=== PATIENT | female | born 1950 | race Two or more races ===

== ENCOUNTER → 2017-10-30 | Outpatient (CLI) | payer OTHER | END | disposition home or self-care (01) | LOC: HKI 14:39 | DX: M17.0 Bilateral primary osteoarthritis of knee (principal) | CPT/HCPCS: 73564; 73564-50 ==

== ENCOUNTER → 2017-12-23 | Outpatient (CLI) | payer OTHER | END | disposition home or self-care (01) | LOC: HKI 15:01 | DX: M17.11 Unilateral primary osteoarthritis, right knee (principal) | CPT/HCPCS: Z7500 ==

== ENCOUNTER → 2018-03-03 | Outpatient (CLI) | payer OTHER | END | disposition home or self-care (01) | LOC: HKI 13:47 | DX: M17.11 Unilateral primary osteoarthritis, right knee (principal) | CPT/HCPCS: Z7500 ==

== ENCOUNTER → 2018-04-20 | Outpatient (CLI) | payer OTHER | END | disposition home or self-care (01) | LOC: HKI 10:38 | DX: M25.561 Pain in right knee (principal); M17.11 Unilateral primary osteoarthritis, right knee | CPT/HCPCS: Z7500 ==

== ENCOUNTER → 2018-05-18 | Outpatient (CLI) | payer OTHER | END | disposition home or self-care (01) | LOC: HKI 10:25 | DX: M25.561 Pain in right knee (principal) | CPT/HCPCS: Z7500 ==

== ENCOUNTER 2018-05-27 13:36 | Inpatient (IN) | payer OTHER ==
[2018-05-27] MEDS: TRANEXAMIC ACID 1,000 MG in NS 100 ML INTRA-OP X1 IVPB (06:00)
[2018-05-27] MEDS: TRANEXAMIC ACID 1,000 MG in NS 100 ML PRE-OP X1 IVPB (06:00)
[2018-05-27] MEDS: DEXAMETHASONE 4 MG/ML 1 ML INJ IV ×2 (06:00→16:00)
[2018-05-27] MEDS: LACTATED RINGER'S 1,000 ML IV* (06:00)
[2018-05-27] MEDS: LANSOPRAZOLE 30 MG CAP PO (06:00)
[2018-05-27] MEDS: CEFAZOLIN 2 GM/50 ML (PMX) 50 ML IVPB (06:00)
[~2018-05-27 13:36] MED LIST: PROPOFOL 200 MG INJ
[2018-05-27] MEDS: SOD CHLORIDE 0.9% 1,000 ML IV ×2 (15:27→22:12)
[2018-05-27] MEDS ORDERED: BISACODYL 10 MG SUPP PR (15:30)
[2018-05-27] MEDS ORDERED: BETHANECHOL 25 MG TAB PO (15:30)
[2018-05-27] MEDS: ONDANSETRON 4 MG INJ IV ×2 (15:30→21:58)
[2018-05-27] MEDS ORDERED: oxyCODONE 5 MG TAB PO (15:30)
[2018-05-27] MEDS ORDERED: NA PHOSPHATE/BIPHOS 133 ML ENEMA PR (15:30)
[2018-05-27] MEDS: CEFAZOLIN 1 GM/50 ML (PMX) 50 ML IVPB ×2 (15:30→23:26)
[2018-05-27] MEDS ORDERED: NALOXONE (0.4 MG/ML) INJ IV (15:30)
[2018-05-27] MEDS ORDERED: LANSOPRAZOLE 30 MG CAP (15:52)
[2018-05-27] MEDS: POLYMYXIN B 500000 UNIT INJ (16:45)
[2018-05-27] MEDS: BACITRACIN 50000 UNITS INJ (16:45)
[2018-05-27] MEDS: KNEE PAIN COCKTAIL (CEFUROXIME) INJ (16:45)
[2018-05-27] MEDS ORDERED: PROVENTIL HFA 6.7GM INHALER (18:15)
[2018-05-27] MEDS ORDERED: morphine SULFATE/PF (10 MG/10 ML) INJ (18:15)
[2018-05-27] MEDS ORDERED: FENTAnyl 50 MCG/ML VIAL (18:15)
[2018-05-27] MEDS ORDERED: MIDAZOLAM 1 MG/ML 2 ML INJ (18:15)
[2018-05-27] MEDS ORDERED: ETOMIDATE 20 MG INJ (18:20)
[2018-05-27] MEDS ORDERED: ROCURONIUM 50 MG INJ (18:20)
[2018-05-27] MEDS ORDERED: LIDOCAINE 2% (SDV) 5 ML INJ (18:20)
[2018-05-27] MEDS ORDERED: CEFAZOLIN 1 GM INJ (18:21)
[2018-05-27] MEDS: DOCUSATE SODIUM 100 MG CAP PO (18:47)
[2018-05-27] MEDS: ASPIRIN 81 MG TAB PO ×2 (18:48→21:00)
[2018-05-27] MEDS ORDERED: MEPERIDINE 25 MG INJ IV (19:00)
[2018-05-27] MEDS ORDERED: ONDANSETRON 4 MG INJ IV (19:00)
[2018-05-27] MEDS ORDERED: METOCLOPRAMIDE 10 MG INJ IV (19:00)
[2018-05-27] MEDS ORDERED: FENTAnyl 50 MCG/ML VIAL IV (19:00)
[2018-05-27] MEDS ORDERED: ALBUTEROL 0.083% (NEB) 2.5 MG/3 ML AMP HHN (19:00)
[2018-05-27] MEDS ORDERED: HYDROmorphONE 1 MG/5 ML IV SYRINGE IV ×2 (19:00)
[2018-05-27] MEDS ORDERED: DIPHENHYDRAMINE 50 MG INJ IV (19:00)
[2018-05-27] MEDS ORDERED: GLUCAGON 1 MG INJ IM (20:00)
[2018-05-27] MEDS ORDERED: GLUCOSE GEL 15 GRAM TUBE PO ×2 (20:00)
[2018-05-27] MEDS ORDERED: DEXTROSE 50% 50 ML SYRINGE IV (20:00)
[2018-05-27] MEDS ORDERED: GLUCOSE GEL 15 GRAM TUBE BUCCAL (20:00)
[2018-05-27] MEDS: GABAPENTIN 100 MG CAP PO (21:58)
[2018-05-27] MEDS: ACCU-CHEK XX (22:06)
[2018-05-27] MEDS: DEXTROSE 50% 50 ML SYRINGE IV (22:49)
[2018-05-28] MEDS: ONDANSETRON 4 MG INJ IV ×2 (03:21→09:10)
[2018-05-28 05:12] LABS: ADD MAN DIFF? NO
[2018-05-28 05:14] LABS: BASOPHILS % 0.5 % (0.0-2.0); EOSINOPHILS # 0.1 10^3/ul (0.0-0.5); EOSINOPHILS % 0.6 % (0.0-7.0); HEMATOCRIT 36.8 % (37.0-47.0); HEMOGLOBIN 12.2 g/dl (12.0-16.0); LYMPHOCYTES # 0.6 10^3/ul (0.8-2.9); LYMPHOCYTES % 7.4 % (15.0-51.0); MEAN CORPUSCULAR HEMOGLOBIN 31.2 pg (29.0-33.0); MEAN CORPUSCULAR HGB CONC 33.2 g/dl (32.0-37.0); MEAN CORPUSCULAR VOLUME 94.1 fl (82.0-101.0); MEAN PLATELET VOLUME 12.5 fl (7.4-10.4); MONOCYTE # 0.5 10^3/ul (0.3-0.9); MONOCYTES % 5.5 % (0.0-11.0); NEUTROPHIL # 7.4 10^3/ul (1.6-7.5); NEUTROPHILS % 85.7 % (39.0-77.0); PLATELET COUNT 226 10^3/UL (140-415); RED BLOOD COUNT 3.91 10^6/ul (4.20-5.40); RED CELL DISTRIBUTION WIDTH 13.9 % (11.5-14.5)
[2018-05-28 05:14] LABS: WHITE BLOOD COUNT 8.7 10^3/ul (4.8-10.8)
[2018-05-28 05:40] LABS: ANION GAP 6 (5-13); BLOOD UREA NITROGEN 14 mg/dl (7-20); CALCIUM 8.4 mg/dl (8.4-10.2); CARBON DIOXIDE 31 mmol/L (21-31); CHLORIDE 103 mmol/L (97-110); CREATININE 0.56 mg/dl (0.44-1.00); Estimated GFR > 60 mL/min (>60); GLUCOSE 118 mg/dl (70-220); POTASSIUM 4.8 mmol/L (3.5-5.1); SODIUM 140 mmol/L (135-144)
[2018-05-28] MEDS: LEVOTHYROXINE 100 MCG TAB PO (06:03)
[2018-05-28] MEDS: oxyCODONE 5 MG TAB PO ×4 (06:03→21:27)
[2018-05-28] MEDS: CEFAZOLIN 1 GM/50 ML (PMX) 50 ML IVPB (06:41)
[2018-05-28] MEDS: ACETAMINOPHEN 325 MG TAB PO (07:15)
[2018-05-28] MEDS: ACCU-CHEK XX ×4 (08:29→20:23)
[2018-05-28] MEDS: DOCUSATE SODIUM 100 MG CAP PO ×2 (09:08→20:30)
[2018-05-28] MEDS: metFORMIN 500 MG TAB PO ×2 (09:08→18:19)
[2018-05-28] MEDS: ASPIRIN 81 MG TAB PO ×2 (09:08→20:30)
[2018-05-28] MEDS: FERROUS FUMARATE (SR) TAB PO ×2 (09:08→20:30)
[2018-05-28] MEDS: BENAZEPRIL 20 MG TAB PO (09:09)
[2018-05-28] MEDS: CELECOXIB 200 MG CAP PO (09:09)
[2018-05-28] MEDS: GABAPENTIN 100 MG CAP PO ×2 (09:09→20:30)
[2018-05-28] MEDS: AMLODIPINE 10 MG TAB PO (09:09)
[2018-05-28] MEDS: DIPHENHYDRAMINE 50 MG INJ IV (10:10)
[2018-05-28] MEDS: SOD CHLORIDE 0.9% 1,000 ML IV (13:06)
[2018-05-28] MEDS: GLIMEPIRIDE 2 MG TAB PO ×2 (13:06→17:55)
[2018-05-28] MEDS: BISOPROLOL 5 MG TAB PO (13:07)
[2018-05-28] MEDS: ENOXAPARIN 30 MG/0.3 ML SYG SC (17:31)
[2018-05-29] MEDS: oxyCODONE 5 MG TAB PO ×2 (04:34→09:15)
[2018-05-29 05:41] LABS: ADD MAN DIFF? NO
[2018-05-29 05:45] LABS: BASOPHILS % 0.4 % (0.0-2.0); EOSINOPHILS # 0.1 10^3/ul (0.0-0.5); EOSINOPHILS % 0.5 % (0.0-7.0); HEMATOCRIT 37.3 % (37.0-47.0); HEMOGLOBIN 12.3 g/dl (12.0-16.0); LYMPHOCYTES # 1.1 10^3/ul (0.8-2.9); LYMPHOCYTES % 9.7 % (15.0-51.0); MEAN CORPUSCULAR HEMOGLOBIN 30.9 pg (29.0-33.0); MEAN CORPUSCULAR VOLUME 93.7 fl (82.0-101.0); MEAN PLATELET VOLUME 12.7 fl (7.4-10.4); MONOCYTES % 8.8 % (0.0-11.0); NEUTROPHIL # 8.8 10^3/ul (1.6-7.5); NEUTROPHILS % 80.2 % (39.0-77.0); PLATELET COUNT 240 10^3/UL (140-415); RED BLOOD COUNT 3.98 10^6/ul (4.20-5.40); RED CELL DISTRIBUTION WIDTH 13.3 % (11.5-14.5)
[2018-05-29] MEDS: LEVOTHYROXINE 100 MCG TAB PO (06:02)
[2018-05-29] MEDS: PANTOPRAZOLE (EC) 40 MG TAB PO (06:02)
[2018-05-29 06:17] LABS: ANION GAP 6 (5-13); BLOOD UREA NITROGEN 14 mg/dl (7-20); CALCIUM 8.4 mg/dl (8.4-10.2); CARBON DIOXIDE 33 mmol/L (21-31); CHLORIDE 100 mmol/L (97-110); CREATININE 0.65 mg/dl (0.44-1.00); Estimated GFR > 60 mL/min (>60); GLUCOSE 110 mg/dl (70-220); POTASSIUM 4.8 mmol/L (3.5-5.1); SODIUM 139 mmol/L (135-144)
[2018-05-29] MEDS: ACETAMINOPHEN 325 MG TAB PO ×2 (06:22→13:12)
[2018-05-29] MEDS: ACCU-CHEK XX ×4 (08:58→21:00)
[2018-05-29] MEDS: GABAPENTIN 100 MG CAP PO (09:15)
[2018-05-29] MEDS: DOCUSATE SODIUM 100 MG CAP PO ×2 (09:15→21:44)
[2018-05-29] MEDS: FERROUS FUMARATE (SR) TAB PO ×2 (09:16→21:00)
[2018-05-29] MEDS: GLIMEPIRIDE 2 MG TAB PO ×2 (09:16→17:55)
[2018-05-29] MEDS: ASPIRIN 81 MG TAB PO ×2 (09:16→21:45)
[2018-05-29] MEDS: BISOPROLOL 5 MG TAB PO (09:16)
[2018-05-29] MEDS: AMLODIPINE 10 MG TAB PO (09:16)
[2018-05-29] MEDS: metFORMIN 500 MG TAB PO ×2 (09:17→17:55)
[2018-05-29] MEDS: BENAZEPRIL 20 MG TAB PO (09:17)
[2018-05-29] MEDS: ENOXAPARIN 30 MG/0.3 ML SYG SC (09:26)
[2018-05-29] MEDS: MAGNESIUM HYDROXIDE 30ML CUP PO (21:48)
[2018-05-30] MEDS: oxyCODONE 5 MG TAB PO ×2 (03:09→15:53)
[2018-05-30 05:26] LABS: ADD MAN DIFF? NO
[2018-05-30 05:33] LABS: BASOPHILS % 0.2 % (0.0-2.0); EOSINOPHILS # 0.2 10^3/ul (0.0-0.5); EOSINOPHILS % 1.9 % (0.0-7.0); HEMOGLOBIN 10.3 g/dl (12.0-16.0); LYMPHOCYTES % 11.3 % (15.0-51.0); MEAN CORPUSCULAR HEMOGLOBIN 30.9 pg (29.0-33.0); MEAN CORPUSCULAR HGB CONC 33.2 g/dl (32.0-37.0); MEAN CORPUSCULAR VOLUME 93.1 fl (82.0-101.0); MEAN PLATELET VOLUME 12.5 fl (7.4-10.4); MONOCYTE # 0.7 10^3/ul (0.3-0.9); MONOCYTES % 8.6 % (0.0-11.0); NEUTROPHIL # 6.5 10^3/ul (1.6-7.5); NEUTROPHILS % 77.6 % (39.0-77.0); PLATELET COUNT 222 10^3/UL (140-415); RED BLOOD COUNT 3.33 10^6/ul (4.20-5.40); RED CELL DISTRIBUTION WIDTH 13.4 % (11.5-14.5)
[2018-05-30 05:33] LABS: WHITE BLOOD COUNT 8.4 10^3/ul (4.8-10.8)
[2018-05-30 06:09] LABS: ANION GAP 6 (5-13); BLOOD UREA NITROGEN 13 mg/dl (7-20); CALCIUM 8.4 mg/dl (8.4-10.2); CARBON DIOXIDE 31 mmol/L (21-31); CHLORIDE 102 mmol/L (97-110); CREATININE 0.55 mg/dl (0.44-1.00); Estimated GFR > 60 mL/min (>60); GLUCOSE 101 mg/dl (70-220); POTASSIUM 3.9 mmol/L (3.5-5.1); SODIUM 139 mmol/L (135-144)
[2018-05-30] MEDS: PANTOPRAZOLE (EC) 40 MG TAB PO (06:09)
[2018-05-30] MEDS: ACETAMINOPHEN 325 MG TAB PO (06:09)
[2018-05-30] MEDS: LEVOTHYROXINE 100 MCG TAB PO (06:10)
[2018-05-30] MEDS: SENNA/DOCUSATE NA (8.6MG/50MG) TAB PO (06:10)
[2018-05-30] MEDS: metFORMIN 500 MG TAB PO ×2 (07:50→17:34)
[2018-05-30] MEDS: ACCU-CHEK XX ×4 (08:15→21:00)
[2018-05-30] MEDS: ASPIRIN 81 MG TAB PO ×2 (08:44→21:40)
[2018-05-30] MEDS: BENAZEPRIL 20 MG TAB PO (08:44)
[2018-05-30] MEDS: BISOPROLOL 5 MG TAB PO (08:45)
[2018-05-30] MEDS: DOCUSATE SODIUM 100 MG CAP PO ×2 (08:45→20:19)
[2018-05-30] MEDS: ENOXAPARIN 30 MG/0.3 ML SYG SC (08:56)
[2018-05-30] MEDS: GLIMEPIRIDE 2 MG TAB PO ×2 (10:21→17:34)
[2018-05-30] MEDS: FERROUS FUMARATE (SR) TAB PO ×2 (12:23→20:19)
[2018-05-30] MEDS: AMLODIPINE 10 MG TAB PO (12:23)
[2018-05-30] MEDS: MAGNESIUM HYDROXIDE 30ML CUP PO (20:17)
[2018-05-31 05:28] LABS: ADD MAN DIFF? NO
[2018-05-31 05:35] LABS: BASOPHILS % 0.4 % (0.0-2.0); EOSINOPHILS # 0.2 10^3/ul (0.0-0.5); EOSINOPHILS % 3.3 % (0.0-7.0); HEMATOCRIT 31.7 % (37.0-47.0); HEMOGLOBIN 10.6 g/dl (12.0-16.0); LYMPHOCYTES # 1.1 10^3/ul (0.8-2.9); MEAN CORPUSCULAR HEMOGLOBIN 31.5 pg (29.0-33.0); MEAN CORPUSCULAR HGB CONC 33.4 g/dl (32.0-37.0); MEAN CORPUSCULAR VOLUME 94.3 fl (82.0-101.0); MEAN PLATELET VOLUME 12.3 fl (7.4-10.4); MONOCYTE # 0.6 10^3/ul (0.3-0.9); MONOCYTES % 9.1 % (0.0-11.0); NEUTROPHIL # 4.7 10^3/ul (1.6-7.5); NEUTROPHILS % 70.8 % (39.0-77.0); PLATELET COUNT 254 10^3/UL (140-415); RED BLOOD COUNT 3.36 10^6/ul (4.20-5.40); RED CELL DISTRIBUTION WIDTH 13.6 % (11.5-14.5)
[2018-05-31 05:35] LABS: WHITE BLOOD COUNT 6.7 10^3/ul (4.8-10.8)
[2018-05-31] MEDS: PANTOPRAZOLE (EC) 40 MG TAB PO (05:41)
[2018-05-31 06:11] LABS: ANION GAP 8 (5-13); BLOOD UREA NITROGEN 12 mg/dl (7-20); CALCIUM 8.4 mg/dl (8.4-10.2); CARBON DIOXIDE 33 mmol/L (21-31); CHLORIDE 101 mmol/L (97-110); CREATININE 0.61 mg/dl (0.44-1.00); Estimated GFR > 60 mL/min (>60); GLUCOSE 95 mg/dl (70-220); POTASSIUM 4.2 mmol/L (3.5-5.1); SODIUM 142 mmol/L (135-144)
[2018-05-31] MEDS: ACCU-CHEK XX ×2 (07:20→11:10)
[2018-05-31] MEDS: metFORMIN 500 MG TAB PO (07:30)
[2018-05-31] MEDS: GLIMEPIRIDE 2 MG TAB PO (07:30)
[2018-05-31] MEDS: LEVOTHYROXINE 100 MCG TAB PO (07:30)
[2018-05-31] MEDS: FERROUS FUMARATE (SR) TAB PO (09:00)
[2018-05-31] MEDS: AMLODIPINE 10 MG TAB PO (09:43)
[2018-05-31] MEDS: BISOPROLOL 5 MG TAB PO (09:43)
[2018-05-31] MEDS: ASPIRIN 81 MG TAB PO (09:43)
[2018-05-31] MEDS: BENAZEPRIL 20 MG TAB PO (09:44)
[2018-05-31] MEDS: ENOXAPARIN 30 MG/0.3 ML SYG SC (09:45)
== END 2018-05-31 12:15 | disposition home health service (06) | DRG 470 ==
LOC: REC 13:36 → MS1 19:55
PROVIDERS: Orthopaedic Surgery Adult Reconstructive Orthopaedic Surgery
PROC: 0SRC06A Replacement of Right Knee Joint with Oxidized Zirconium on Polyethylene Synthetic Substitute, Uncemented, Open Approach (ICD-10-PCS; principal; 2018-05-27 15:54)
DX: M17.11 Unilateral primary osteoarthritis, right knee (principal); I10 Essential (primary) hypertension; E11.8 Type 2 diabetes mellitus with unspecified complications; R13.10 Dysphagia, unspecified
CPT/HCPCS: 71045; 73560; 80048; 82962; 85025; 86850; 86900; 86901; 88304; 88311; 97110; 97116; 97162; 97530

== ENCOUNTER → 2018-06-09 | Outpatient (CLI) | payer OTHER | END | disposition home or self-care (01) | LOC: HKI 13:42 | DX: Z47.1 Aftercare following joint replacement surgery (principal); Z96.651 Presence of right artificial knee joint | CPT/HCPCS: 73562; 73562-RT ==

== ENCOUNTER → 2018-07-07 | Outpatient (CLI) | payer OTHER | END | disposition home or self-care (01) | LOC: HKI 13:31 | DX: Z09 Encounter for follow-up examination after completed treatment for conditions other than malignant neoplasm (principal); M25.561 Pain in right knee; Z96.651 Presence of right artificial knee joint | CPT/HCPCS: 73562; 73562-RT ==

== ENCOUNTER → 2018-08-13 | Outpatient (CLI) | payer OTHER | END | disposition home or self-care (01) | LOC: HKI 10:26 | DX: Z47.1 Aftercare following joint replacement surgery (principal); M25.661 Stiffness of right knee, not elsewhere classified; Z96.651 Presence of right artificial knee joint ==

== ENCOUNTER → 2018-08-18 | Outpatient (CLI) | payer OTHER | END | disposition home or self-care (01) | LOC: HKI 14:24 | DX: Z09 Encounter for follow-up examination after completed treatment for conditions other than malignant neoplasm (principal); Z96.651 Presence of right artificial knee joint ==